=== PATIENT | male | born 1970 | race Caucasian/White ===

== ENCOUNTER 2019-06-04 05:48 | Outpatient (CLI) | payer OTHER ==
[~2019-06-04] VITALS: Ht 193 cm; Wt 99.8 kg
[2019-06-04] MEDS ORDERED: GEMF600T8 PO (12:52)
[2019-06-04] MEDS ORDERED: GLUC1TAB29 PO (12:52)
[2019-06-04] MEDS ORDERED: MULT-178 PO (12:52)
[2019-06-04] MEDS ORDERED: KRIL1CAP18 PO (12:52)
[2019-06-04] MEDS ORDERED: ACYC800T PO (12:52)
[2019-06-04] MEDS ORDERED: LORA10TA76 PO (12:52)
[2019-06-04] MEDS ORDERED: RANI-515 PO (12:53)
== END 2019-06-04 13:00 ==
LOC: PREOP 05:48
PROVIDERS: ATTEND Surgery
DX: Z01.818 Encounter for other preprocedural examination (principal); Z12.11 Encounter for screening for malignant neoplasm of colon; K92.1 Melena

== ENCOUNTER 2019-06-11 08:26 | Day surgery (SDC) | payer OTHER ==
[2019-06-11] VITALS (7 sets, daily range): BP systolic 100–134; BP diastolic 73–103
[~2019-06-11] VITALS: Ht 193 cm; Wt 99.8 kg
[~2019-06-11 08:26] MED LIST: ACYC800T PO; GEMF600T8 PO; GLUC1TAB29 PO; KRIL1CAP18 PO; LORA10TA76 PO; MULT-178 PO; RANI-515 PO
[2019-06-11] MEDS ORDERED: LACTATED RINGERS 1,000 ML IV STA (08:34)
[2019-06-11] MEDS ORDERED: HURRICAINE EXT TUBE (BENZOCAINE) XX PRN (08:45)
[2019-06-11] MEDS ORDERED: PROPOFOL INJECTION 50 ML IV ONE (08:51)
[2019-06-11] MEDS ORDERED: MIDAZOLAM 2 MG/2 ML (VERSED) VIAL ONE (08:51)
--- NOTE | 2019-06-11 09:06 | Progress Note-Pre Operative ---
Pre-Operative Progress Note H&P Reviewed The H&P was reviewed, patient examined and no changes noted. Time Seen by Provider: 08:57 Date H&P Reviewed: Jun 11, 2019 Time H&P Reviewed: 08:58 Pre-Operative Diagnosis: Blood in stool, Gastritis ILIANA LEE DO Jun 11, 2019 09:06
[2019-06-11] MEDS ORDERED: proPOfol 200 MG/20 ML (DIPRIVAN) VIAL IV ONE (09:21)
--- NOTE | 2019-06-11 09:35 | Progress Note-Post Operative ---
Post-Operative Progess Note Surgeon (s)/Section Gang (s) Surgeon ILIANA LEE DO Section Gang: none Pre-Operative Diagnosis Blood in stool, Gastritis Post-Operative Diagnosis Gastritis Esophagitis Hiatal hernia Colon polyps diverticula internal hemorrhoids Procedure & Operative Findings Date of Procedure 06/11/19 Procedure Performed/Findings EGD with bx colon with snare Colon with cold bx Anesthesia Type Iv sedation by QUALITY IMPROVEMENT ANALYST Estimated Blood Loss Estimated blood loss (mL): scant Specimens/Packing Specimens Removed antral bx Body of stomach bx GE jxn bx Descending colon polyp Sigmoid colon polyp ILIANA LEE DO Jun 11, 2019 09:35
--- NOTE | 2019-06-11 09:36 | Endoscopy Discharge Instruct ---
Endo Procedure/Findings Findings 1.: Gastritis 2.: Hiatal Hernia 3.: Polyp 4.: Diverticulosis, Internal Hemorrhoids Discharge Instructions - Activity: You might feel a little sleepy until tomorrow. This is due to the medicine you received to relax you. Until tomorrow, you should: NOT drive a car, operate machinery or power tools. NOT drink any alcoholic beverages. NOT make any important decisions or sign importortant papers. Do not return to work until tomorrow, unless otherwise instructed. Resume previous activities tomorrow. Diet: Start by taking liquids. If you tolerate liquids, advance to solid food. make an appointment for one week Notify Physician - If you experience excessive bleeding, unusual abdominal pain, fever, or chest pain, contact your doctor immediately. Follow-Up: - I have received and understand the above instructions and will call my doctor if I have any further questions. Patient Signature Date Nurse Signature Other (Relationship) ILIANA LEE DO Jun 11, 2019 09:36
[2019-06-11] MEDS ORDERED: HURRICAINE EXT TUBE (BENZOCAINE) ONE (09:46)
--- NOTE | 2019-06-11 16:03 | OPERATIVE REPORT ---
DATE OF SERVICE: 06/11/2019 PREOPERATIVE DIAGNOSES: 1. Blood in stool. 2. Gastritis. POSTOPERATIVE DIAGNOSES: 1. Gastritis. 2. Hiatal hernia. 3. Colon polyps. 4. Diverticula. 5. Internal hemorrhoids. PROCEDURES PERFORMED: 1. Colonoscopy with snare polypectomy. 2. Colonoscopy with cold biopsy. 3. Esophagogastroduodenoscopy with biopsy. SURGEON: Keegan Christine DO. CLINICAL PROJECT COORDINATOR: None. ANESTHESIA: IV sedation by DIRECTOR OF GLOBAL TALENT. SPECIMEN: 1. Biopsy from the antrum. 2. Biopsy of body of stomach. 3. Biopsy from the GE junction. 4. Descending colon polyp. 5. Sigmoid colon polyp. BLOOD LOSS: Scant. FLUIDS: Per Anesthesia. POSTOPERATIVE CONDITION: Stable. INDICATION FOR PROCEDURE: The patient is a 49-year-old male who has been having some blood in his stool and has chronic gastritis and needed a workup. FINDINGS: The patient had some gastritis and a large hiatal hernia, some changes at the GE junction looked like maybe esophagitis. He had polyps in the colon, one in the descending colon, one very flat small in the sigmoid colon. He also had some diverticula and some internal hemorrhoids. PROCEDURE NOTE: After informed consent was obtained, the patient was brought to the endoscopy suite and placed in the left lateral decubitus position. He was administered IV sedation by the DIRECTOR OF GLOBAL TALENT who then monitored his vitals the entire time, then started with the EGD, placed the scope down the mouth through the esophagus and into the stomach and noted some gastritis, pushed in past the antrum into the duodenum. Duodenum looked fine. Took a picture. Pulled back into the antrum, took a picture and then did a biopsy of antrum, then did a biopsy of body of stomach, retroflexed the scope, saw pretty large hiatal hernia, took a picture of this and then noted some changes at the GE junction and did a biopsy of the GE junction, pulled the scope up the esophagus, did not see anything else and pulled the scope out. Switched gloves, switched cameras, went down below, started the colonoscopy pushed the scope in, pushed in all the way to [address] in, noted some diverticula, took a picture of this, got all the way to cecum, took a picture of appendiceal orifice, noted the ileocecal valve and then slowly withdrew the scope insufflating to look circumferentially at the carlin, looking the cecum up the ascending colon to the hepatic flexure, then down the transverse colon, the splenic flexure, into the descending colon. In the descending colon, saw a larger polyp and elected to do a snare polypectomy of this, able to remove this and then continued down into the sigmoid, saw small flat polyp, unable to get this with a snare, so did a cold biopsy of this and then continued down into the rectum and then retroflexed the rectal vault, saw some internal hemorrhoids, took a picture of this and then removed the scope. The patient tolerated the procedure, recovered in endoscopy suite. Job ID: [id number] DocumentID: [id number] Dictated Date: 06/11/2019 09:34:03 Wash Oil Pump Operator Helper Date: 06/11/2019 16:03:03 Dictated By: KEEGAN CHRISTINE DO
== END 2019-06-11 10:40 | disposition home or self-care (01) ==
LOC: ENDO 08:26
PROVIDERS: ATTEND Surgery
DX: K29.50 Unspecified chronic gastritis without bleeding (principal); K22.70 Barrett's esophagus without dysplasia; K21.9 Gastro-esophageal reflux disease without esophagitis; D12.4 Benign neoplasm of descending colon; D12.5 Benign neoplasm of sigmoid colon; K44.9 Diaphragmatic hernia without obstruction or gangrene; K57.30 Diverticulosis of large intestine without perforation or abscess without bleeding; K64.8 Other hemorrhoids; K92.1 Melena; E78.5 Hyperlipidemia, unspecified; E78.00 Pure hypercholesterolemia, unspecified; Z80.1 Family history of malignant neoplasm of trachea, bronchus and lung; Z83.42 Family history of familial hypercholesterolemia
CPT/HCPCS: 88305

== ENCOUNTER 2019-11-12 05:41 | Outpatient (CLI) | payer OTHER ==
[~2019-11-12] VITALS: Ht 193 cm; Wt 100.0 kg
[~2019-11-12 05:41] MED LIST changes: -RANI-515 PO; +RANI-609 PO
[2019-11-12] MEDS ORDERED: OMEP-280 PO (12:44)
[2019-11-12] MEDS ORDERED: ASCO500C17 PO (12:44)
[2019-11-12] MEDS ORDERED: SUCR1TAB PO (12:44)
== END 2019-11-12 12:46 | disposition home or self-care (01) ==
LOC: PREOP 05:41
PROVIDERS: ATTEND Surgery
DX: Z01.818 Encounter for other preprocedural examination (principal)